=== PATIENT | male | born 1965 | race Two or more races ===

== ENCOUNTER 2017-11-07 07:34 | Outpatient (CLI) | payer OTHER ==
[~2017-11-07 07:34] MED LIST: CIPRO750 MG; IBUPROFEN800 MG PO; LEVAQUIN750 MG PO; MOTRIN800 MG PO; SEPTRA DS TABLE1 TAB PO; TRAMADOL HCL-AP1 TAB
== END 2017-11-07 08:43 | disposition home or self-care (01) ==
LOC: RAD 07:34
DX: M25.511 Pain in right shoulder (principal); M25.512 Pain in left shoulder; M25.521 Pain in right elbow

== ENCOUNTER 2017-12-08 07:40 | Outpatient (CLI) | payer OTHER | END 2017-12-08 07:48 | disposition home or self-care (01) | LOC: LAB 07:40 | DX: C64.2 Malignant neoplasm of left kidney, except renal pelvis (principal) ==

== ENCOUNTER 2017-12-08 09:55 | Outpatient (CLI) | payer OTHER | END 2017-12-08 09:56 | disposition home or self-care (01) | LOC: SONOGRAMA 09:55 | DX: R10.32 Left lower quadrant pain (principal) ==

== ENCOUNTER 2018-10-04 11:16 | Outpatient (CLI) | payer OTHER | END 2018-10-04 12:17 | disposition home or self-care (01) | LOC: SONOGRAMA 11:16 | DX: R10.13 Epigastric pain (principal); N39.0 Urinary tract infection, site not specified; N40.0 Benign prostatic hyperplasia without lower urinary tract symptoms; R31.9 Hematuria, unspecified ==

== ENCOUNTER 2018-12-07 06:25 | Outpatient (CLI) | payer OTHER | END 2018-12-07 06:30 | disposition home or self-care (01) | LOC: LAB 06:25 | DX: R97.21 Rising PSA following treatment for malignant neoplasm of prostate (principal); C62.10 Malignant neoplasm of unspecified descended testis ==

== ENCOUNTER 2018-12-07 09:06 | Outpatient (CLI) | payer OTHER | END 2018-12-07 09:09 | disposition home or self-care (01) | LOC: SONOGRAMA 09:06 → MAMO-SONO 10:45 | DX: C64.2 Malignant neoplasm of left kidney, except renal pelvis (principal); C62.12 Malignant neoplasm of descended left testis ==

== ENCOUNTER → 2020-02-27 06:38 | Outpatient (CLI) | payer OTHER | END | disposition home or self-care (01) | LOC: LAB 06:38 | DX: C64.2 Malignant neoplasm of left kidney, except renal pelvis (principal); C62.12 Malignant neoplasm of descended left testis ==

== ENCOUNTER 2021-12-24 14:09 | Outpatient (CLI) | payer OTHER ==
[~2021-12-24 14:09] MED LIST changes: +LISINOPRIL10 MG
== END 2021-12-24 14:18 | disposition home or self-care (01) ==
LOC: TOM 14:09
PROVIDERS: ATTEND General Practice
DX: R10.13 Epigastric pain (principal); N39.0 Urinary tract infection, site not specified; R31.9 Hematuria, unspecified; K25.9 Gastric ulcer, unspecified as acute or chronic, without hemorrhage or perforation; K85.90 Acute pancreatitis without necrosis or infection, unspecified

== ENCOUNTER 2021-12-27 07:47 | Outpatient (CLI) | payer OTHER | END 2021-12-27 07:49 | disposition home or self-care (01) | LOC: SONOGRAMA 07:47 | PROVIDERS: ATTEND General Practice | DX: R10.13 Epigastric pain (principal); N39.0 Urinary tract infection, site not specified; N40.0 Benign prostatic hyperplasia without lower urinary tract symptoms; R31.9 Hematuria, unspecified; K75.9 Inflammatory liver disease, unspecified ==

== ENCOUNTER 2023-04-17 07:06 | Outpatient (CLI) | payer OTHER | END 2023-04-17 07:24 | disposition home or self-care (01) | LOC: TOM 07:06 | PROVIDERS: ATTEND Urology | DX: C64.2 Malignant neoplasm of left kidney, except renal pelvis (principal); C62.12 Malignant neoplasm of descended left testis; D30.02 Benign neoplasm of left kidney ==